=== PATIENT | female | born 1975 | race Hispanic/Latino ===

== ENCOUNTER 2019-06-28 13:40 | Emergency (ER) | payer SELFPAY ==
[~2019-06-28] VITALS: Ht 154.9 cm; Wt 86.6 kg
--- OUTSIDE RECORDS SUMMARY | 2019-06-28 13:42 | XMS REPORT ---
Author Author [facility] Address Unknown Phone Unavailable Care Team Providers Care Pomologist Name Role Phone Unavailable Unavailable Payers Payer Name Policy Type Policy Number Effective Date Expiration Date Problems This patient has no known problems. Allergies, Adverse Reactions, Alerts Allergy Name Allergy Type Status Severity Reaction(s) Onset Date Inactive Date Treating Clinician Comments diethyltoluamide DA Active U 2019-04-17 00:00:00 diethyltoluamide DA Active U 2018-10-26 00:00:00 No Known Drug Allergies DA Active U 2017-03-13 00:00:00 diethyltoluamide DA Active U 2017-03-13 00:00:00 PESTICIDE DA Active U 2011-09-28 00:00:00 Medications This patient has no known medications. Results Test Description Test Time Test Comments Text Results Atomic Results Result Comments PROCALCITONIN (PCT) 2019-04-18 02:58:00 PROCALCITONIN (PCT) (test code=PROCAL) 0.17 ng/ml Concentration Interpretation (ng/mL) <0.51 Sepsis is not likely. Local bacterial infection is possible. (LOW RISK for progression to Sepsis) 0.51 - 2.00 Sepsis is possible, but other conditions are known to elevate PCT as well. (MODERATE RISK for progression to Sepsis) > 2.00 Sepsis is likely, unless other causes are known. (HIGH RISK for progression to Severe Sepsis or Septic Shock) 10.00 High likelihood of Severe Sepsis or Septic or higher Shock. *Increased PCT levels may not always be related to systemic bacterial infection.*Low PCT levels do not automatically exclude the presence of bacterial infection.*All results should be interpreted taking into account the patients history. [id number] 02:19:00* Test Item Value Reference Range Comments GLYCOSYLATED HEMOGLOBIN (HA1C) (test code=GLYHGB) 12.6 % HbA1 4.8-6.0 ESTIMATED AVERAGE GLUCOSE (test code=EAG) 315 MG/DL - CT ABD PELVIS [id number] 01:50:00 Name: UNIQUE ROJAS [facility] : 1975 Age/S: 43 / F [address] [facility] Unit #: [id number] Loc: NISHA [place] [address] Phys: Rain Urena MD Acct: [id number] Dis Date: Status: REG ER PHONE #: [phone] Exam Date: 04/18/2019 0130 FAX #: [phone] Reason: LUQ,LLQ PAIN, FEVER EXAMS: CPT CODE: [id number] CT ABD PELVIS W/CONT 44551 LOCATION: Q15 HISTORY: 43-year-old female who presents with left upper quadrant and left lower quadrant abdominal pain with fever. COMMENT: Axial CT imaging of this patient's abdomen and pelvis was obtained with IV contrast. Delayed postcontrast imaging through the kidneys was included. Coronal and sagittal soft tissue reconstructions were included. CONTRAST: 100 mL of Isovue-300 nonionic contrast was injected. One or more of the following dose reduction techniques are used: Automated exposure control, adjustment of the mA and/or kV according the patient size, and/or utilization of iterative reconstruction technique. DLP: 704.43 mGy-cm FINDINGS: The lung bases are clear. The cardiac silhouette is unremarkable. The liver, spleen, pancreas, adrenal glands, and kidneys exhibit no acute findings. Bilateral renal function is seen on the delayed study. Cholecystectomy clips are present. The upper intestinal tract and the small intestine are unremarkable. A surgical clip is seen near the cecal tip, indicating a prior appendectomy. The colon is unremarkable. No ascites is seen and no adenopathy is present. In the pelvis the urinary bladder is unremarkable. A fibroid is seen in the uterine fundus measuring 45 mm in diameter. The ovaries are unremarkable. The vascul ar anatomy is unremarkable. The musculoskeletal anatomy is unremar kable. IMPRESSION: PAGE 1 Signed Repo rt (CONTINUED) Name: UNIQUE ROJAS [facility] : 1975 Age/S: 43 / F [address] Unit #: [id number] Loc: NISHA Hanna [address] Phys: Rain Urena MD Acct: [id number] Dis Date: Status: REG ER PHONE #: [phone] Exam Date: 04/18/2019 0130 FAX #: [phone] Reason: LUQ,LLQ PAIN, FEVER EXAMS: CPT CODE: [id number] CT ABD PELVIS W/CONT 21371 <Continued> There are no acute findings seen in this patient's abdomen or pelvis on this CT examination. A fibroid uterus is demonstrated. at 0150 Reported and signed by: Malcolm Fulton M.D. CC: Rain Urena MD Technologist:SESAR ORNELAS CTDI: DLP: Trnscb Date/Time: 04/18/2019 (149) [email or web address] Orig Print D/T: S: 04/18/2019 (152) PAGE 2 Signed Report BASIC METABOLIC [id number] 01:14:00* Test Item Value Reference Range Comments SODIUM (test code=NA) 135 mmol/L 136-145 POTASSIUM (test code=K) 3.6 mmol/L 3.5-5.1 CHLORIDE (test code=CL) 104.0 mmol/L 98-107 CARBON DIOXIDE (test code=CO2) 23.0 mmol/L 21-32 ANION GAP (test code=GAP) 11.6 10-20 GLUCOSE (test code=GLU) 296 mg/dL 74-106 BLOOD UREA NITROGEN (test code=BUN) 6 mg/dL 7-18 GLOMERULAR FILTRATION RATE (test code=GFR) > 60 mL/min >=60 Estimated GFR by using Modified MDRD formula.Chronic kidney disease is defined as either kidney damageor GFR <60 mL/min/1.73 m2 for >3 months. CREATININE (test code=CREAT) 0.60 mg/dL 0.55-1.02 Note change in reference range due to change in reagent. BUN/CREATININE RATIO (test code=BUN/CREA) 10.0 10-20 CALCIUM (test code=CA) 8.2 mg/dL 8.5-10.1 HEPATIC FUNCTION [id number] 01:14:00* Test Item Value Reference Range Comments TOTAL PROTEIN (test code=PROT) 7.6 gram/dL 6.4-8.2 ALBUMIN (test code=ALB) 3.3 g/dL 3.4-5.0 GLOBULIN (test code=GLOB) 4.3 gram/dL 2.7-4.2 ALBUMIN/GLOBULIN RATIO (test code=A/G) 0.8 0.75-1.50 BILIRUBIN TOTAL (test code=BILT) 0.40 mg/dL 0.0-1.0 BILIRUBIN DIRECT (test code=BILD) 0.11 mg/dL 0.0-0.20 SGOT/AST (test code=AST) 12 IUnit/L 15-37 SGPT/ALT (test code=ALT) 21 IUnit/L 12-78 ALKALINE PHOSPHATASE TOTAL (test code=ALKP) 109 IUnit/L 45-117 Note change in reference range due to change in reagent. [id number] 01:14:00* Test Item Value Reference Range Comments LIPASE (test code=LIP) 221 U/L 73.0-393.0 HCG SERUM [id number] 01:14:00* Test Item Value Reference Range Comments HCG SERUM QUAL (test code=HCGQL) NEGATIVE NEGATIVE This HCGQL test is NOT applicable for MALE patients.Check with nurse about probable order error.If Tumor Marker Test needed, nurse should order test "HCGTU"(Test #[id number]) [id number] 01:14:00* Test Item Value Reference Range Comments TROPONIN-I (test code=TROPI) <0.015 ng/mL 0-0.045 BASIC METABOLIC [id number] 01:12:00* Test Item Value Reference Range Comments SODIUM (test code=NA) 135 mmol/L 136-145 POTASSIUM (test code=K) 3.6 mmol/L 3.5-5.1 CHLORIDE (test code=CL) 104.0 mmol/L 98-107 CARBON DIOXIDE (test code=CO2) 23.0 mmol/L 21-32 ANION GAP (test code=GAP) 11.6 10-20 GLUCOSE (test code=GLU) 296 mg/dL 74-106 BLOOD UREA NITROGEN (test code=BUN) 6 mg/dL 7-18 GLOMERULAR FILTRATION RATE (test code=GFR) > 60 mL/min >=60 Estimated GFR by using Modified MDRD formula.Chronic kidney disease is defined as either kidney damageor GFR <60 mL/min/1.73 m2 for >3 months. CREATININE (test code=CREAT) 0.60 mg/dL 0.55-1.02 Note change in reference range due to change in reagent. BUN/CREATININE RATIO (test code=BUN/CREA) 10.0 10-20 CALCIUM (test code=CA) 8.2 mg/dL 8.5-10.1 HEPATIC FUNCTION [id number] 01:12:00* Test Item Value Reference Range Comments TOTAL PROTEIN (test code=PROT) 7.6 gram/dL 6.4-8.2 ALBUMIN (test code=ALB) 3.3 g/dL 3.4-5.0 GLOBULIN (test code=GLOB) 4.3 gram/dL 2.7-4.2 ALBUMIN/GLOBULIN RATIO (test code=A/G) 0.8 0.75-1.50 BILIRUBIN TOTAL (test code=BILT) 0.40 mg/dL 0.0-1.0 BILIRUBIN DIRECT (test code=BILD) 0.11 mg/dL 0.0-0.20 SGOT/AST (test code=AST) 12 IUnit/L 15-37 SGPT/ALT (test code=ALT) 21 IUnit/L 12-78 ALKALINE PHOSPHATASE TOTAL (test code=ALKP) 109 IUnit/L 45-117 Note change in reference range due to change in reagent. [id number] 01:12:00* Test Item Value Reference Range Comments LIPASE (test code=LIP) 221 U/L 73.0-393.0 HCG SERUM [id number] 01:12:00* Test Item Value Reference Range Comments HCG SERUM QUAL (test code=HCGQL) NEGATIVE [id number] 01:12:00* Test Item Value Reference Range Comments TROPONIN-I (test code=TROPI) <0.015 ng/mL 0-0.045 LACTIC [id number] 01:12:00* Test Item Value Reference Range Comments LACTIC ACID (test code=LACT) 1.1 mmol/L 0.4-1.9 URINALYSIS [id number] 00:58:00* Test Item Value Reference Range Comments UA COLOR (test code=COLU) Light-Yellow YELLOW UA APPEARANCE (test code=APPU) Cloudy CLEAR UA GLUCOSE DIPSTICK (test code=DGLUU) >1000 (4+) mg/dL NEGATIVE UA BILIRUBIN DIPSTICK (test code=BILU) NEGATIVE mg/dL NEGATIVE UA KETONE DIPSTICK (test code=KETU) 20 (1+) mg/dL NEGATIVE UA SPECIFIC GRAVITY (test code=SGU) 1.030 1.001-1.035 UA BLOOD DIPSTICK (test code=GALDINO) 0.5 mg/dL (2+) mg/dL NEGATIVE UA PH DIPSTICK (test code=GARRY) 6.0 5.0-8.0 UA PROTEIN DIPSTICK (test code=PROU) 30 (1+) mg/dL NEGATIVE UA UROBILINIOGEN DIPSTICK (test code=URO) Normal mg/dL NEGATIVE UA NITRITE DIPSTICK (test code=SUDARSHAN) POSITIVE NEGATIVE UA LEUKOCYTE ESTERASE W REFLEX (test code=LEUUR) 500 Elizabet/uL (3+) Elizabet/uL NEGATIVE UA WBC (test code=WBCU) >200 per HPF 0-5 UA RBC (test code=RBCU) 11-20 #/HPF 0-5 UA WBC CLUMPS (test code=WBCUCL) 7-10 /HPF NONE UA EPITHELIAL CELLS (test code=EPIU) FEW per HPF FEW UA BACTERIA (test code=BACU) FEW #/HPF NONE UA MUCUS (test code=MUCU) FEW #/LPF FEW Urine Source? Clean CatchCBC W/O [id number] 00:52:00* Test Item Value Reference Range Comments WHITE BLOOD CELL (test code=WBC) K/mm3 4.5-12.5 RED BLOOD CELL (test code=RBC) mill/mm3 3.7-5.2 HEMOGLOBIN (test code=HGB) 12.5 gram/dL 11.5-15.5 HEMATOCRIT (test code=HCT) 37.6 % 36.0-46.0 MEAN CELL VOLUME (test code=MCV) fL 80-98 MEAN CELL HGB (test code=MCH) picogram 27.0-33.0 MEAN CELL HGB CONCETRATION (test code=MCHC) gram/dL 33.0-36.0 RED CELL DISTRIBUTION WIDTH (test code=RDW) % 11.6-16.2 PLATELET COUNT (test code=PLT) K/mm3 150-450 MEAN PLATELET VOLUME (test code=MPV) fL 6.7-11.0 CBC W/O [id number] 00:52:00* Test Item Value Reference Range Comments WHITE BLOOD CELL (test code=WBC) 10.6 K/mm3 4.5-12.5 RED BLOOD CELL (test code=RBC) 4.38 mill/mm3 3.7-5.2 HEMOGLOBIN (test code=HGB) 12.5 gram/dL 11.5-15.5 HEMATOCRIT (test code=HCT) 37.6 % 36.0-46.0 MEAN CELL VOLUME (test code=MCV) 85.8 fL 80-98 MEAN CELL HGB (test code=MCH) 28.5 picogram 27.0-33.0 MEAN CELL HGB CONCETRATION (test code=MCHC) 33.2 gram/dL 33.0-36.0 RED CELL DISTRIBUTION WIDTH (test code=RDW) 12.6 % 11.6-16.2 PLATELET COUNT (test code=PLT) 346 K/mm3 150-450 MEAN PLATELET VOLUME (test code=MPV) 10.3 fL 6.7-11.0 - XR CHEST 2 [id number] 23:10:00 FAX: Jade Trevino NP Call: Kelsie St: REG Name: UNIQUE SMITH [facility] : [birth year] Age/S: 43/F [place] Unit #: [id number] Loc: NISHA [place] [address] Phys: Jade Trevino NP Acct: [id number] Dis Date: Status: REG ER PHONE #: [phone] Exam Date: 10/26/20187 FAX #: [phone] Reason: shortness of breath EXAMS: CPT CODE: [id number] XR CHEST 2 V 42874 EXAM: Chest X-ray, 2 views; CLINICAL HISTORY: Shortness of breath; FINDINGS: The lungs are clear, no infiltrates, no edema; no effusions; no pneumothora x; normal cardiomediastinal silhouette. IMPRESSION: Normal chest x-ray. at 2310 Reported and signed by: Franc Juarez M.D. CC: Jade Trevino NP Te chnologist: [place] Vidal Trnscrd Date/ Time/By: 10/26/2018 (2310) : By: Reilly Orig Print D/T: S: 10/27/19 19 (8055) PAGE 1 Signed Report
[2019-06-28 14:13] LABS: BASOPHILS # (AUTO) 0.1 (0.0-0.1); BASOPHILS % 1.2 % (0.0-1.0); EOSINOPHILS # (AUTO) 0.2 (0.0-0.4); HEMATOCRIT 41.1 % (34.2-44.1); HEMOGLOBIN 13.9 g/dL (12.0-16.0); LYMPHOCYTES # (AUTO) 2.4 (1.0-3.2); LYMPHOCYTES % 30.9 % (18.0-39.1); MEAN CORPUSCULAR HEMOGLOBIN 28.3 pg (28-32); MEAN CORPUSCULAR HGB CONC 33.8 g/dL (31-35); MEAN CORPUSCULAR VOLUME 83.5 fL (81-99); MONOCYTES # (AUTO) 0.6 (0.2-0.8); MONOCYTES % 7.8 % (4.4-11.3); NEUTROPHILS # (AUTO) 4.4 (2.1-6.9); NEUTROPHILS % 56.8 % (38.7-80.0); PLATELET COUNT 419 x10e3/uL (140-360); RED BLOOD COUNT 4.92 x10e6/uL (3.6-5.1); RED CELL DISTRIBUTION WIDTH 13.1 % (11.7-14.4)
[2019-06-28 14:17] LABS: BILIRUBIN,URINE NEGATIVE (NEGATIVE); CLARITY,URINE SL CLOUDY (CLEAR); COLOR,URINE YELLOW (YELLOW); KETONES,URINE NEGATIVE (NEGATIVE); LEUKOCYTE ESTERASE ,URINE NEGATIVE (NEGATIVE); NITRITE,URINE NEGATIVE (NEGATIVE); PROTEIN,URINE DIPSTICK NEGATIVE (NEGATIVE); URINE UROBILINOGEN 0.2 mg/dL (0.2 - 1)
[2019-06-28 14:25] LABS: PREGNANCY TEST, URINE NEGATIVE (NEGATIVE)
[2019-06-28 14:32] LABS: ALANINE AMINOTRANSFERASE 20 IU/L (0-55); ALBUMIN 3.8 g/dL (3.5-5.0); ALKALINE PHOSPHATASE 92 IU/L (40-150); ANION GAP 13.9 mmol/L (8-16); BLOOD UREA NITROGEN 12 mg/dL (7-26); BUN/CREATININE RATIO 16 (6-25); CALCIUM 9.3 mg/dL (8.4-10.2); CARBON DIOXIDE 23 mmol/L (22-29); CHLORIDE 101 mmol/L (98-107); CREATININE, SERUM 0.77 mg/dL (0.57-1.11); EST GLOMERULAR FILTRATION RATE > 60 ML/MIN (60-); GLUCOSE 326 mg/dL (74-118); POTASSIUM 3.9 mmol/L (3.5-5.1); SODIUM 134 mmol/L (136-145)
[2019-06-28 14:41] LABS: BACTERIA,URINE MODERATE /HPF; EPITHELIAL CELLS,URINE MANY /LPF; WBC,URINE (MAN) 0-5 /HPF (0-5)
[2019-06-28] MEDS ORDERED: SODIUM CHLORIDE 0.9% 1000ML 1,000 ML IV SCH (15:00)
--- NOTE | 2019-06-28 15:21 | Diagnostic Imaging Report ---
EXAMINATION: CT of the abdomen and pelvis without contrast. TECHNIQUE: Spiral CT images of the abdomen and pelvis were performed from the lung bases to the lesser trochanters. No intravenous contrast was given per renal stone protocol. Coronal and sagittal reformatted images were obtained. COMPARISON: None. CLINICAL HISTORY:Right flank pain with radiation to right lower quadrant. DISCUSSION: ABSENCE OF INTRAVENOUS CONTRAST DECREASES SENSITIVITY FOR DETECTION OF FOCAL LESIONS AND VASCULAR PATHOLOGY. ABDOMEN/PELVIS: LOWER THORAX: Minimal subsegmental atelectasis in the dependent lower lobes. No pleural or pericardial effusion. HEPATOBILIARY:No focal hepatic lesion or intrahepatic biliary ductal dilatation. The gallbladder is absent. SPLEEN: Calcified granuloma. No splenomegaly. PANCREAS: No focal masses or ductal dilatation. ADRENALS: No adrenal nodules. KIDNEYS/URETERS: Punctate nonobstructing calculus in the lower pole of the left kidney seen on series 3 image 71. Probable Frederic plaques in the bilateral kidneys. No hydronephrosis. No ureteral or bladder calculi. No gross renal mass lesion. PELVIC ORGANS/BLADDER: Urinary bladder is incompletely distended but otherwise unremarkable. 5 cm isoattenuating mass with coarse internal calcifications within the right side of the uterine body compatible with a fibroid. 2.5 cm left ovarian cyst or dominant follicle. PERITONEUM/RETROPERITONEUM: No free air or fluid. LYMPH NODES: No pelvic sidewall, retroperitoneal, or mesenteric lymphadenopathy. VESSELS: Limited evaluation without intravenous contrast. The abdominal aorta is nonaneurysmal. GI TRACT: The large bowel shows no distention or wall thickening. There are a few diverticula scattered along the course of the small bowel without adjacent inflammatory change. The appendix is normal. The stomach is collapsed with prominent rugal folds. No small bowel dilatation to suggest obstruction. BONES AND SOFT TISSUES: No osseous destructive lesions. No focal soft tissue abnormalities. IMPRESSION: No acute intra-abdominal or pelvic CT abnormalities. Normal appendix. Nonobstructing left renal calculus. 5 cm degenerating uterine fibroid. Signed by: Dr. Casey Duran M.D. on 06/28/2019 3:18 PM
[2019-06-28] MEDS ORDERED: ZOFRAN4 MG SL (15:45)
[2019-06-28] MEDS ORDERED: ONDANSETRON HCL INJ 2MG/ML 2ML 2 MG/ML VIAL IV ONE (15:51)
[2019-06-28] MEDS ORDERED: ONDANSETRON HCL INJ 2MG/ML 2ML 2 MG/ML VIAL ONE (15:55)
== END 2019-06-28 16:20 | disposition home or self-care (01) ==
LOC: ER 13:40
DX: R10.84 Generalized abdominal pain (principal); R11.2 Nausea with vomiting, unspecified; R19.7 Diarrhea, unspecified; E11.9 Type 2 diabetes mellitus without complications; F41.9 Anxiety disorder, unspecified; J45.909 Unspecified asthma, uncomplicated
CPT/HCPCS: 36415; 74176; 80053; 81001; 81025; 82948; 85025; 87086; 87186; 96374; 99284; J2405; J7030

== ENCOUNTER 2024-09-05 16:08 | Emergency (ER) | payer OTHER ==
[~2024-09-05] VITALS: Ht 154.9 cm; Wt 93.4 kg
[~2024-09-05 16:08] MED LIST: ZOFRAN4 MG SL
[2024-09-05 16:56] LABS: INFLUENZA A AG NEGATIVE (NEGATIVE)
[2024-09-05 16:57] LABS: CORONAVIRUS COVID-19 AG NEGATIVE (NEGATIVE); INFLUENZA B AG NEGATIVE (NEGATIVE)
[2024-09-05] MEDS: IBUPROFEN 600 MG TAB PO STA (17:29)
[2024-09-05] MEDS: ACETAMINOPHEN 325 MG TAB PO ONE (17:30)
[2024-09-05 18:03] VITALS: PULSE 74; RESP 18; TEMP 99.6; O2SAT 99
== END 2024-09-05 18:25 | disposition home or self-care (01) ==
LOC: ER 16:53
DX: R50.9 Fever, unspecified (principal); B34.9 Viral infection, unspecified; R05.9 Cough, unspecified; E11.9 Type 2 diabetes mellitus without complications; Z11.52 Encounter for screening for COVID-19
CPT/HCPCS: 71046; 99283

== ENCOUNTER 2025-03-07 21:41 | Emergency (ER) | payer OTHER ==
[~2025-03-07] VITALS: Ht 154.9 cm; Wt 90.7 kg
[2025-03-07 21:50] VITALS: TEMP 98.1
[2025-03-07] MEDS: SODIUM CHLORIDE 0.9% 1000ML 1,000 ML IV STA (22:11)
[2025-03-07 22:17] LABS: BASOPHILS % 0.8 % (0.0-1.0); EOSINOPHILS % 3.0 % (0.0-6.0); LYMPHOCYTES % 20.8 % (18.0-39.1); MONOCYTES % 6.2 % (4.4-11.3); NEUTROPHILS % 68.8 % (38.7-80.0); RED CELL DISTRIBUTION WIDTH 12.7 % (11.7-14.4)
[2025-03-07 22:20] LABS: OPIATES SCREEN,URINE NEGATIVE (NEGATIVE)
[2025-03-07 22:21] LABS: AMPHETAMINES SCREEN,URINE NEGATIVE (NEGATIVE); CANNABINOIDS SCREEN,URINE NEGATIVE (NEGATIVE); COCAINE SCREEN,URINE NEGATIVE (NEGATIVE); METHADONE SCREEN, URINE NEGATIVE (NEGATIVE)
[2025-03-07 22:22] LABS: LEUKOCYTE ESTERASE ,URINE TRACE (NEGATIVE); PROTEIN,URINE DIPSTICK NEGATIVE (NEGATIVE); URINE UROBILINOGEN 0.2 mg/dL (0.2 - 1)
[2025-03-07 22:42] LABS: EST GLOMERULAR FILTRATION RATE 80 ML/MIN (>=60)
[2025-03-07 23:06] LABS: EPITHELIAL CELLS,URINE MODERATE /LPF; WBC,URINE (MAN) 21-50 /HPF (0-5)
[2025-03-07 23:17] LABS: ETHANOL < 10.0 mg/dL (0.0-10.0)
[2025-03-08 00:35] VITALS: PULSE 81; RESP 16; O2SAT 99
[2025-03-08] MEDS ORDERED: CEPHALEXIN500 MG PO (00:44)
[2025-03-08] MEDS: INSULIN REGULAR, HUMAN 100 UNIT/1 ML SQ STA (00:58)
[2025-03-08] MEDS ORDERED: IOPAMIDOL 370 MG/ML 100 ML INFUS..BTL INJ ONE (01:15)
== END 2025-03-08 01:07 | disposition home or self-care (01) ==
LOC: ER 21:43
DX: R30.0 Dysuria (principal); N39.0 Urinary tract infection, site not specified; R33.8 Other retention of urine; E11.65 Type 2 diabetes mellitus with hyperglycemia; R16.0 Hepatomegaly, not elsewhere classified; K76.0 Fatty (change of) liver, not elsewhere classified; J45.909 Unspecified asthma, uncomplicated; F41.9 Anxiety disorder, unspecified; R94.31 Abnormal electrocardiogram [ECG] [EKG]
CPT/HCPCS: 36415; 74177; 80053; 80307; 80320; 81001; 81025; 82550; 82948; 83690; 83880; 84484; 85025; 93005; 99284; J7030; Q9967